=== PATIENT | female | born 1995 | race Caucasian/White ===

== ENCOUNTER 2023-02-26 17:48 | Emergency (ER) | payer SELFPAY ==
[~2023-02-26] VITALS: Wt 115.7 kg
[2023-02-26] MEDS ORDERED: AMOXICILLIN500 M3 PO (19:16)
[2023-02-26] MEDS ORDERED: PERIDEX118 ML PO (19:16)
== END 2023-02-26 19:30 | disposition home or self-care (01) ==
LOC: ED 17:48
DX: K02.9 Dental caries, unspecified (principal); Z88.2 Allergy status to sulfonamides